=== PATIENT | male | born 1980 | race Caucasian/White ===

== ENCOUNTER 2024-12-10 23:32 | Emergency (ER) | payer BC, MEDICAID ==
[~2024-12-10] VITALS: Ht 175.3 cm; Wt 91.0 kg
--- NOTE | 2024-12-11 00:31 | ED.PDOC ---
History of Present Illness HPI Comments 44 y/o obese male, with history of 2x hernia repairs (~5 years ago), presents with c/o non-radiating, LUQ abdominal and lower, right back pain, nausea, fever, and chills, today. Patient endorses on unprovoked onset of symptoms at around [id number], this evening. He comments on abdominal pain being costa to a "punching sensation," with no report of history of similar symptoms in the past. Patient denies any vomiting, urinary symptoms, cough, congestion, diarrhea, or other associated symptoms or modifiers at this time. Time Seen by MD: 00:20 Reviewed Notes: Nurses Notes, Medications, Allergies Allergies: Coded Allergies: NO KNOWN ALLERGIES (Unverified , 07/02/13) Information Source: Patient Mode of Arrival: Ambulatory Severity: Moderate Timing: Hours Duration: Since onset Prehospital treatment: None Past Medical History Past Medical History (Other): obesity Surgical History: Hernia Repair (2x) Family History Family History: Unknown Social History Smoker: Non-Smoker Alcohol: Denies ETOH Use Drugs: Denies Drug Use Lives In: Home All Other Systems: Reviewed and Negative (Comprehensive systems review obtained and negative except for what is stated in the HPI) Physical Exam General Appearance: No Apparent Distress, Obese HEENT: Normal ENT Inspection, Pharynx Normal, TMs Normal Neck: Full Range of Motion, Non-Tender, Normal, Normal Inspection Respiratory: Chest Non-Tender, Lungs Clear, No Accessory Muscle Use, No Respiratory Distress, Normal Breath Sounds Cardiovascular: No Edema, No JVD, No Murmur, No Gallop, Normal Peripheral Pulses, Regular Rate/Rhythm Breast Exam: Deferred Gastrointestinal: No Organomegaly, Non Tender, No Pulsatile Mass, Normal Bowel Sounds, Soft Genitalia: Deferred Pelvic: Deferred Rectal: Deferred Extremities: No calf tenderness, Normal capillary refill, Normal inspection, Normal range of motion, Non-tender, No pedal edema Musculoskeletal : Apperance: Normal Neurologic: Alert, claims account manager II-XII nml as Tested, No Motor Deficits, Normal Affect, Normal Mood, No Sensory Deficits Cerebellar Function: Normal Reflexes: Normal Skin: Dry, Normal Color, Warm Lymphatic: No Adenopathy Was a procedure done? Was a procedure done?: No Differential Dx Considerations may include: gastritis, gastroenteritis, GERD, PUD, viral syndrome, spoiled food, UTI, nephrolithiasis, musculoskeletal pain, among others X-Ray, Labs, Meds, VS Vital Signs Date Time Temp Pulse Resp B/P (MAP) Pulse Ox O2 Delivery O2 Flow Rate FiO2 12/11/24 04:11 53 12 95 Room Air* 0 21 12/11/24 04:11 98.0 53 12 148/88 (108) 95 98.0 12/11/24 03:14 97.9 66 13 142/89 (106) 98 97.9 12/11/24 02:36 65 18 152/89 12/11/24 02:09 75 18 154/103 12/11/24 02:00 97.6 57 19 154/103 (120) 97 97.6 12/11/24 02:00 57 19 97 Room Air 12/11/24 00:17 97.8 58 16 144/96 (112) 98 97.8 Lab Test 12/11/24 00:33 12/11/24 00:17 Range/Units White Blood Count 16.4 H 4.4-10.8 10^3/uL Red Blood Count 5.30 4.5-5.90 10^6/uL Hemoglobin 16.3 13.5-17.5 g/dL Hematocrit 47.6 41.0-53.0 % Mean Corpuscular Volume 89.8 80.0-100.0 fL Mean Corpuscular Hemoglobin 30.7 28.0-32.0 pg Mean Corpuscular Hemoglobin Concent 34.1 32.0-36.0 g/dL Red Cell Distribution Width 14.9 H 11.8-14.3 % Platelet Count 223 140-450 10^3/uL Mean Platelet Volume 9.4 6.9-10.8 fL Neutrophils (%) (Auto) 77.4 37.0-80.0 % Lymphocytes (%) (Auto) 11.1 10.0-50.0 % Monocytes (%) (Auto) 8.4 0.0-12.0 % Eosinophils (%) (Auto) 1.7 0.0-7.0 % Basophils (%) (Auto) 1.4 0.0-2.0 % Neutrophils # (Auto) 12.6 H 1.6-8.6 10 ^3/uL Lymphocytes # (Auto) 1.8 0.4-5.4 10 ^3/uL Monocytes # (Auto) 1.4 H 0-1.3 10 ^3/uL Eosinophils # (Auto) 0.3 0-0.8 10 ^3/uL Basophils # (Auto) 0.2 0-0.2 10 ^3/uL Nucleated Red Blood Cells 0.1 % Sodium Level 139 136-145 mmol/L Potassium Level 4.1 3.5-5.1 mmol/L Chloride Level 105 98-107 mmol/L Carbon Dioxide Level 21 20-31 mmol/L Anion Gap 13 5-15 Blood Urea Nitrogen 9 9-23 mg/dL Creatinine 1.19 0.700-1.30 mg/dL Glomerular Filtration Rate Calc 77 >90 mL/min BUN/Creatinine Ratio 7.6 L 10.0-20.0 Serum Glucose 139 H 74-106 mg/dL Calcium Level 11.2 H 8.7-10.4 mg/dL Total Bilirubin 5.9 H 0.2-1.0 mg/dL Direct Bilirubin 3.7 H <0.3 mg/dL Aspartate Amino Transferase (AST) 283 H 13-40 U/L Alanine Aminotransferase (ALT) 316 H 7-40 U/L Alkaline Phosphatase 348 H 46-116 U/L Total Protein 8.0 5.7-8.2 g/dL Albumin 5.0 H 3.2-4.8 g/dL Lipase 33 12-53 U/L Urine Color Dark-yellow Yellow Urine Clarity Turbid H Clear Urine pH 6.5 5.0-9.0 Urine Specific [place] 1.034 1.001-1.035 Urine Protein 2+ H Negative Urine Ketones 2+ H Negative Urine Blood Negative Negative /uL Urine Nitrite Negative Negative Urine Bilirubin 1+ Negative Urine Urobilinogen 12 H Negative mg/dL Urine Leukocyte Esterase Trace Negative /uL Urine RBC 2 0 - 3 /hpf Urine WBC Clumps Present None Seen /hpf Urine Microscopic WBC 1 0-3 /HPF Urine Squamous Epithelial Cells Mod <5 /hpf Urine Bacteria None seen None Seen /hpf Urine Mucus Few None Seen Urine Glucose Normal Normal mg/dL Current Medications Medications (Trade) Dose Ordered Sig/Mei Route Start Time Stop Time Status Last Admin Morphine Sulfate 4 mg ONCE ONCE IV 12/11/24 00:30 12/11/24 00:31 DC 12/11/24 02:09 Ondansetron HCl (Zofran) 4 mg ONCE ONCE IV 12/11/24 00:30 12/11/24 00:31 DC 12/11/24 02:08 Sodium Chloride 1,000 ml @ 1,000 mls/hr Q1H ONCE IV 12/11/24 00:30 12/11/24 01:29 DC 12/11/24 02:02 Piperacillin Sod/ Tazobactam Sod 100 ml @ 100 mls/hr ONCE ONCE IV 12/11/24 03:45 12/11/24 04:44 DC 12/11/24 03:55 Time of 1ST Reevaluation: 00:50 Reevaluation 1ST: Unchanged Patient Education/Counseling: Diagnosis, Treatment Family Education/Counseling: No Family Present Additional Information Previous visit documents reviewed: July 04, 2013 encounter for large right inguinal hernia The following tests were ordered, and results were reviewed by me: lipase, UA, CBC, BMP Additional Information was gathered from interviewing the following independent historians: n/a I reviewed and agreed with the following test results read by other providers: n/a I discussed treatment and results with medical personnel and: Patient Departure 1 Departure Time of Disposition: 04:54 (Patient presented with abdominal pain that was concerning for possible appendicits, gastritis, cholecystitis, colitis, gastroenteritis, sbo, or orther possible surgical emergency. Data: 1. I ordered and reviewed the result of at least 3 labs including a CBC, BMP, and Urinalysis. 2. I independently interpreted the following tests: CT Abdoment and Pelvis is concerning for choledocholithiasis .Risk:This patient has a high risk of morbidity due to further diagnostic testing or treatment and may suffer from an acute abdominal process disorder. Workup reveals choledocholithiasis and and patient was transferred to [facility] for possible ERCP.) Impression: Primary Impression: Choledocholithiasis with acute cholecystitis with obstruction Additional Impressions: Projectile vomiting with nausea Intractable abdominal pain Disposition: 02 SHORT TERM HOSPITAL Admit to: Med Surg Condition: Serious Critical Care Note Critical Care Time?: Yes Critical care comment: Intractable abdominal pain, choledocholithiasis Authorized and Performed by: Ellen Olsen MD Total critical care time: Approximately 49 minutes Due to a high probability of clinically significant, life threatening deterioration, the patient required my highest level of preparedness to intervene emergently and I personally spent this critical care time directly and personally managing the patient. This critical care time included obtaining a history; examining the patient; pulse oximetry; ordering and review of studies; arranging urgent treatment with development of a management plan; evaluation of patient's response to treatment; frequent reassessment; and, discussions with other providers. This critical care time was performed to assess and manage the high probability of imminent, life-threatening deterioration that could result in multi-organ failure. It was exclusive of separately billable procedures and treating other patients and teaching time. Please see my other sections and the rest of the note for further information on patient assessment and treatment. Stability Stability form required: No Heart Score Heart Score: Heart Score Response (Comments) Value History N/A 0 EKG N/A 0 Age N/A 0 Risk Factors N/A 0 Troponin N/A 0 Total 0 I personally scribed for ELLEN OLSEN MD ([email or web address]) on 12/11/24 at 00:31. Electronically submitted by Brennan Lema ([email or web address]). I personally scribed for ELLEN OLSEN MD ([email or web address]) on 12/11/24 at 01:03. Electronically submitted by Brennan Lema ([email or web address]). ELLEN OLSEN MD Dec 11, 2024 00:31
[2024-12-11 00:58] LABS: Urine Bacteria None Seen /hpf (None Seen)
[2024-12-11 01:02] LABS: Basophils # (auto) 0.2 10 ^3/uL (0-0.2); Basophils % (auto) 1.4 % (0.0-2.0); Eosinophils # (auto) 0.3 10 ^3/uL (0-0.8); Eosinophils % (auto) 1.7 % (0.0-7.0); Hematocrit 47.6 % (41.0-53.0); Hemoglobin 16.3 g/dL (13.5-17.5); Lymphocytes # (auto) 1.8 10 ^3/uL (0.4-5.4); Lymphocytes % (auto) 11.1 % (10.0-50.0); Mean Corpuscular Hemoglobin 30.7 pg (28.0-32.0); Mean Corpuscular Hgb Conc. 34.1 g/dL (32.0-36.0); Mean Corpuscular Volume 89.8 fL (80.0-100.0); Monocytes # (auto) 1.4 10 ^3/uL (0-1.3); Monocytes % (auto) 8.4 % (0.0-12.0); Neutrophils # (auto) 12.6 10 ^3/uL (1.6-8.6); Neutrophils % (auto) 77.4 % (37.0-80.0); Nucleated Red Blood Cells % 0.1 %; Platelet Count (auto) 223 10^3/uL (140-450); Red Cell Distribution Width 14.9 % (11.8-14.3); White Blood Cell 16.4 10^3/uL (4.4-10.8)
[2024-12-11 01:10] LABS: Urine Blood Negative /uL (Negative); Urine Clarity Turbid (Clear); Urine Color Dark-Yellow (Yellow); Urine Mucus FEW (None Seen); Urine Protein, UAD 2+ (Negative); Urine Specific Gravity 1.034 (1.001-1.035); Urine Squamous Epithelial Cell MOD /hpf (<5); Urine Urobilinogen 12 mg/dL (Negative); Urine WBC 1 /HPF (0-3); Urine WBC Clumps PRESENT /hpf (None Seen); Urine pH 6.5 (5.0-9.0)
[2024-12-11 01:11] LABS: Chloride 105 mmol/L (98-107); Potassium 4.1 mmol/L (3.5-5.1); Sodium 139 mmol/L (136-145)
[2024-12-11 01:12] LABS: Anion Gap 13 (5-15); Carbon Dioxide 21 mmol/L (20-31)
[2024-12-11 01:17] LABS: BUN/Creatinine Ratio 7.6 (10.0-20.0); Lipase 33 U/L (12-53)
[2024-12-11 01:21] LABS: Blood Urea Nitrogen 9 mg/dL (9-23); Calcium 11.2 mg/dL (8.7-10.4); Glucose 139 mg/dL (74-106)
[2024-12-11] MEDS: SODIUM CHLORIDE 0.9% 1,000 ML IV ONE (02:02)
[2024-12-11] MEDS: ONDANSETRON HCL 4 MG/2 ML VIAL IV ONE ×2 (02:08→05:50)
[2024-12-11] MEDS: MORPHINE SULFATE 4 MG/ML SYR/VIAL IV ONE ×2 (02:09→05:50)
[2024-12-11] MEDS: IOHEXOL 300 MG/ML 100ML BOTTLE IJ ONE (02:24)
--- NOTE | 2024-12-11 03:11 | DVH ---
Exam: CT CT AB PEL WITH IV CON ONLY History: abdominal pain Comparison Study: None available at time of dictation. Contrast: 100 cc Omnipaque 300 TECHNIQUE: A digital tubing supervisor image was obtained. During the uneventful, intravenous administration of c ontrast material, multislice data acquisition was obtained through the abdomen and pelvis. The data s et was subsequently reconstructed into axial images. Images were reviewed on a work station using a c ombination of axial and multiplanar using a variety of window levels and settings. All CT scans at this medical facility are performed using dose modulation techniques as appropriate t o a performed exam including the following: Automated exposure control was utilized; adjustment of th e MA and/or KV according to patient size; and use of iterative reconstruction technique. Radiation Dose Information: CT Dose: CTDI volume is 22.14 mGy. Dose-length product is 1262.98 mGy*cm FINDINGS: Patient vomited mid exam delaying contrast opacification by 3 minutes. Imaged portions of the lung bases demonstrate areas of atelectasis in the lingula and right middle lo be. There is a small hiatal hernia. There is moderate to marked intra and extrahepatic biliary dilatation . The common bile duct estimates 1.9 cm. There are several calculi in the distal common bile duct me asuring up to 1.3 cm. The cystic duct is dilated. The gallbladder is relatively normal in caliber w ith mild wall thickening. Pancreas, adrenal glands, and spleen appear unremarkable. The kidneys enhance symmetrically without hydronephrosis. There is no evidence of small-bowel obstruction. The colon is collapsed with severe sigmoid diverticu losis. There is diffuse submucosal fat within the colon. The appendix appears normal. No free fluid, free air, or adenopathy. Fat containing left inguinal hernia. No suspicious osseous lesion. IMPRESSION: 1. Choledocholithiasis with marked dilation of the common bile duct, cystic duct, and intrahepatic bi liary radicles. HS:Y
[2024-12-11] MEDS: PIPERACILLIN-TAZO 4.5GM 100 ML IV ONE (03:55)
[2024-12-11 04:11] VITALS: PULSE 53; RESP 12; O2SAT 95
[2024-12-11 04:23] LABS: Bilirubin, Direct 3.7 mg/dL (<0.3); Bilirubin, Total 5.9 mg/dL (0.2-1.0)
[2024-12-11 07:05] VITALS: BP 152/90; PULSE 55; RESP 15; TEMP 97.6; O2SAT 95
== END 2024-12-11 03:55 | disposition short-term general hospital (02) ==
LOC: ER 23:32
DX: K80.43 Calculus of bile duct with acute cholecystitis with obstruction (principal); R11.2 Nausea with vomiting, unspecified; R10.12 Left upper quadrant pain; E66.9 Obesity, unspecified; Z98.890 Other specified postprocedural states
CPT/HCPCS: 36415; 74177; 80048; 80076; 81001; 83605; 83690; 85025; 87040; 96361; 96365; 96375; 96376; 99285; J2270; J2405; J2543; Q9967